=== PATIENT | male | born 2000 | race African-American/Black ===

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

== ENCOUNTER 2020-12-03 10:28 | Emergency (ER) | payer OTHER ==
[~2020-12-03] VITALS: Ht 172.7 cm; Wt 61.8 kg
[2020-12-03 10:47] VITALS: BP 125/93; TEMP 97.8
[2020-12-03 13:04] VITALS: PULSE 74
== END 2020-12-03 13:04 | disposition home or self-care (01) ==
LOC: COL.ER 10:28
DX: S43.401A Unspecified sprain of right shoulder joint, initial encounter (principal); X50.9XXA Other and unspecified overexertion or strenuous movements or postures, initial encounter